=== PATIENT | female | born 1985 | race Caucasian/White ===

== ENCOUNTER 2020-07-25 16:52 | Emergency (ER) | payer BC, OTHER ==
--- NOTE | 2020-07-25 18:41 | EDPHYS ---
Physician Documentation [facility] Name: Eugenia Julio Age: 34 yrs Sex: Female : 1985 Arrival Date: 07/25/2020 Time: 16:55 Bed 6 Private MD: ED Physician Juan Kidd HPI: 07/25 18:23 This 34 yrs old Female presents to ER via Ambulatory with complaints of kb Shortness Of Breath. 18:23 The patient has shortness of breath at rest. Onset: The symptoms/episode began/occurred kb 1 week(s) ago. Duration: The symptoms are intermittent. The patient's shortness of breath is aggravated by nothing, is alleviated by nothing. Associated signs and symptoms: The patient has no apparent associated signs or symptoms. Severity of symptoms: At their worst the symptoms were mild in the emergency department the symptoms are unchanged. The patient has not experienced similar symptoms in the past. The patient has not recently seen a physician. Pt reports she has felt like she needs to take a deep breath every so often to catch her breath. States it happens more at night and has been going on for a week. Denies cough, congestion, fever, chills. . Historical: - Allergies: 17:18 No Known Allergies; iw - PSHx: 17:18 None; iw - Immunization history:: Flu vaccine is not up to date. - Social history:: Smoking status: Patient denies any tobacco usage or history of. ROS: 18:20 Constitutional: Negative for fever, chills, and weight loss, Cardiovascular: Negative kb for chest pain, palpitations, and edema, Abdomen/GI: Negative for abdominal pain, nausea, vomiting, diarrhea, and constipation, Back: Negative for injury and pain, MS/Extremity: Negative for injury and deformity, Skin: Negative for injury, rash, and discoloration, Neuro: Negative for headache, weakness, numbness, tingling, and seizure. 18:20 Respiratory: Positive for shortness of breath, Negative for cough, dyspnea on exertion, hemoptysis, orthopnea, pleurisy, sputum production, wheezing. Exam: 18:20 Constitutional: This is a well developed, well nourished patient who is awake, alert, kb and in no acute distress. Head/Face: Normocephalic, atraumatic. Neck: Trachea midline, no thyromegaly or masses palpated, and no cervical lymphadenopathy. Supple, full range of motion without nuchal rigidity, or vertebral point tenderness. No Meningismus. Chest/axilla: Normal chest wall appearance and motion. Nontender with no deformity. No lesions are appreciated. Cardiovascular: Regular rate and rhythm with a normal S1 and S2. No gallops, murmurs, or rubs. Normal PMI, no JVD. No pulse deficits. Respiratory: Lungs have equal breath sounds bilaterally, clear to auscultation and percussion. No rales, rhonchi or wheezes noted. No increased work of breathing, no retractions or nasal flaring. Abdomen/GI: Soft, non-tender, with normal bowel sounds. No distension or tympany. No guarding or rebound. No evidence of tenderness throughout. Skin: Warm, dry with normal turgor. Normal color with no rashes, no lesions, and no evidence of cellulitis. MS/ Extremity: Pulses equal, no cyanosis. Neurovascular intact. Full, normal range of motion. Neuro: Awake and alert, GCS 15, oriented to person, place, time, and situation. Cranial nerves II-XII grossly intact. Motor strength 5/5 in all extremities. Sensory grossly intact. Cerebellar exam normal. Normal gait. 18:40 ECG was reviewed by the Attending Physician. Vital Signs: 17:16 BP 126 / 75; Pulse 67; Resp 17; Temp 98.0; Pulse Ox 100% ; Weight 77.11 kg; Height 5 iw ft. 8 in. (172.72 cm); Pain 0/10; 17:16 Body Mass Index 25.85 (77.11 kg, 172.72 cm) iw MDM: 17:50 Patient medically screened. kb 18:20 Data reviewed: vital signs, nurses notes. Data interpreted: Pulse oximetry: on room air kb is 100 %. Interpretation: normal. 18:40 Counseling: I had a detailed discussion with the patient and/or guardian regarding: the kb historical points, exam findings, and any diagnostic results supporting the discharge/admit diagnosis, radiology results, the need for outpatient follow up, a family practitioner, to return to the emergency department if symptoms worsen or persist or if there are any questions or concerns that arise at home. 07/25 17:35 Order name: Chest Single View XRAY kb 07/25 18:29 Order name: EKG; Complete Time: 18:30 kb 10 18:29 Order name: EKG - Nurse/Tech; Complete Time: 18:37 kb EC:40 Rate is 64 beats/min. Rhythm is regular. QRS [place] is Normal. MO interval is normal at kb 132 msec. QRS interval is normal at 86 msec. QT interval is normal at 416 msec. Administered Medications: No medications were administered Disposition: 07/26 09:15 Co-signature as Attending Physician, Juan Kidd MD I agree with the assessment and kdr plan of care. Disposition: 07/25/20 18:41 Discharged to Home. Impression: Dyspnea, unspecified. - Condition is Stable. - Discharge Instructions: Shortness of Breath, [id number]. - Medication Reconciliation Form, Thank You Letter, Antibiotic Education, Prescription Opioid Use form. - Follow up: Emergency Department; When: As needed; Reason: Worsening of condition. Follow up: Private Physician; When: 2 - 3 days; Reason: Recheck today's complaints, Continuance of care, Re-evaluation by your physician. Signatures: Dispatcher [employer] EDID Poonam Brown, MUSEUM REGISTRAR-C MUSEUM REGISTRAR-Ckb Juan Kidd MD MD [facility] Shaneka Miranda RN RN Lianet Moore RN RN ss Corrections: (The following items were deleted from the chart) 07/25 18:58 18:41 07/25/2020 18:41 Discharged to Home. Impression: Dyspnea, unspecified. Condition ss is Stable. Forms are Medication Reconciliation Form, Thank You Letter, Antibiotic Education, Prescription Opioid Use. Follow up: Emergency Department; When: As needed; Reason: Worsening of condition. Follow up: Private Physician; When: 2 - 3 days; Reason: Recheck today's complaints, Continuance of care, Re-evaluation by your physician. kb
--- NOTE | 2020-07-25 18:41 | ER ---
Nurse's Notes [facility] Name: Eugenia Julio Age: 34 yrs Sex: Female : 1985 Arrival Date: 07/25/2020 Time: 16:55 Bed 6 Private MD: Diagnosis: Dyspnea, unspecified Presentation: 07/25 17:16 Chief complaint: Patient states: SOB noticed off/on for 1 week. Worse at night. No iw fever, no cough. No N/V/D. Coronavirus screen: Client denies travel out of the [place] in the last 14 days. At this time, the client does not indicate any symptoms associated with coronavirus-19. Ebola Screen: Patient denies travel to an Ebola-affected area in the 21 days before illness onset. Initial Sepsis Screen: Does the patient meet any 2 criteria? No. Patient's initial sepsis screen is negative. Risk Assessment: Do you want to hurt yourself or someone else? Patient reports no desire to harm self or others. Onset of symptoms was July 19, 2020. 17:16 Method Of Arrival: Ambulatory iw 17:16 Acuity: ZOË 3 iw Historical: - Allergies: 17:18 No Known Allergies; iw - PSHx: 17:18 None; iw - Immunization history:: Flu vaccine is not up to date. - Social history:: Smoking status: Patient denies any tobacco usage or history of. Screenin:10 Abuse screen: Denies threats or abuse. Denies injuries from another. Nutritional ss screening: No deficits noted. Tuberculosis screening: Never had TB. Fall Risk None identified. Assessment: 18:10 General: Appears in no apparent distress. comfortable, Behavior is calm, cooperative, ss Denies fever, feeling ill, fatigue, chills. Pain: Denies pain. Neuro: Level of Consciousness is awake, alert, obeys commands, Oriented to person, place, time, situation, Swimmer are equal bilaterally Speech is normal, Facial symmetry appears normal. Cardiovascular: Pulses are palpable in right radial artery and left radial artery Rhythm is regular. Respiratory: Reports "it just feels like I'm not getting a good enough breath. It's worse when I lay down like at night and today I noticed it was more during the day." Airway is patent Respiratory effort is even, unlabored, Respiratory pattern is regular, symmetrical, Breath sounds are clear bilaterally. Denies cough, pain with respiration, pain with cough, pain with movement. GI: Patient currently denies diarrhea, nausea, vomiting. : No signs and/or symptoms were reported regarding the genitourinary system. EENT: Nares are clear. Derm: Skin is intact, is healthy with good turgor, Skin is dry, Skin is pink, warm \\T\\ dry. normal. Musculoskeletal: No deficits noted. No signs and/or symptoms reported regarding the musculoskeletal system. Vital Signs: 17:16 BP 126 / 75; Pulse 67; Resp 17; Temp 98.0; Pulse Ox 100% ; Weight 77.11 kg; Height 5 iw ft. 8 in. (172.72 cm); Pain 0/10; 17:16 Body Mass Index 25.85 (77.11 kg, 172.72 cm) iw ED Course: 16:55 Patient arrived in ED. ds1 17:17 Triage completed. iw 17:18 Arm band placed on. iw 17:35 Poonam Brown FNP-C is [facility]. kb 17:35 Juan Kidd MD is Attending Physician. kb 17:56 Lianet Moore, GÓMEZ is Primary Nurse. ss 18:10 Patient has correct armband on for positive identification. Bed in low position. Call ss light in reach. 18:11 Chest Single View XRAY In Process Unspecified. EDMS 18:57 No provider procedures requiring assistance completed. Patient did not have IV access ss during this emergency room visit. Administered Medications: No medications were administered Outcome: 18:41 Discharge ordered by MD. kb 18:57 Discharged to home ambulatory. ss 18:57 Condition: good 18:57 Discharge instructions given to patient, Instructed on discharge instructions, follow up and referral plans. Demonstrated understanding of instructions, follow-up care. 18:58 Patient left the ED. ss Signatures: Dispatcher [employer] EDMD Poonam Brown FNP-C FNP-Ckb [place], Demi ds1 Shaneka Miranda RN RN iw Lianet Moore RN RN ss
[2020-07-25 19:23] VITALS: BP 126/75; TEMP 98; O2SAT 100
--- NOTE | 2020-07-26 11:39 | EKG ---
Test Date: 2020-07-25 Test Time: 18:41:05 Solar Water Heater Installer: OWEN MEASUREMENT RESULTS: Intervals: Rate: 64 HI: 132 QRSD: 86 QT: 416 QTc: 429 Cullen: P: 62 HI: 132 QRS: 50 T: 48 INTERPRETIVE STATEMENTS: Normal sinus rhythm Normal ECG No previous ECG available for comparison Electronically Signed On 07-26-20 11:37:28 CDT by Tawanda Miranda
--- NOTE | 2020-07-26 12:03 | RAD REPORT ---
EXAM DESCRIPTION: RAD - Chest Single View - 07/25/2020 10:23 pm CLINICAL HISTORY: DYSPNEA Chest pain. COMPARISON: No comparisons FINDINGS: Portable technique limits examination quality. The lungs are grossly clear. The heart is normal in size. No displaced fractures. IMPRESSION: No acute intrathoracic process suspected.
== END 2020-07-25 18:58 | disposition home or self-care (01) ==
LOC: ER 16:52
DX: R06.00 Dyspnea, unspecified (principal)
CPT/HCPCS: 71045; 93005; 99283

== ENCOUNTER 2022-02-12 20:20 | Emergency (ER) | payer BC ==
[2022-02-12 20:57] LABS: Urine Blood Negative (Negative); Urine Glucose Negative (Negative); Urine Protein Negative (Negative); Urine Specific Gravity 1.025 (1.005-1.030)
--- NOTE | 2022-02-12 21:30 | RAD REPORT ---
EXAM DESCRIPTION: CT - Stone Protocol - 02/12/2022 9:07 pm CLINICAL HISTORY: Abdominal pain. Flank pain COMPARISON: None. TECHNIQUE: Computed axial tomography of the abdomen pelvis was obtained without oral or IV contrast. Lack of IV and oral contrast limits evaluation of solid organs, bowel, and vessels. Coronal reformat tammy images were obtained and reviewed. All CT scans are performed using dose optimization technique as appropriate and may include automated exposure control or mA/KV adjustment according to patient size. FINDINGS: A renal calculus is not seen. An ureteral calculus is not noted. A bladder calculus is not present. 17 millimeter low-density area right kidney. 11 millimeter low to intermediate density area within the medial segment left lobe of the liver. Spleen, pancreas and adrenals appear grossly normal There is no evidence of diverticulitis. The appendix appears normal No adnexal mass IMPRESSION: Negative for a genitourinary calculus 17 millimeter low-density area within the right kidney probably a cyst. 11 millimeter low to intermediate density area within liver probably benign. It is recommended that patient have a followup ultrasound of liver and right kidney in 3 months for r e-evaluation
[2022-02-12] MEDS ORDERED: KETOROLAC 30 MG/ML INJ ONE (21:57)
--- NOTE | 2022-02-12 22:02 | ER ---
Nurse's Notes [facility] Name: Eugenia Julio Age: 36 yrs Sex: Female : 1985 Arrival Date: 02/12/2022 Time: 20:24 Bed 11 Private MD: Diagnosis: UTI/ Urinary tract infection, site not specified;Flank Pain Presentation: 02/12 20:26 Chief complaint: Patient states: "I have been having low back pain on my left side for ab2 a few days. It radiates into my groin." Pt denies any urinary symptoms. Pt denies trauma or known injury. Coronavirus screen: Vaccine status: Patient reports receiving the 2nd dose of the covid vaccine. Client denies travel out of the [place] in the last 14 days. At this time, the client does not indicate any symptoms associated with coronavirus-19. Ebola Screen: Patient negative for fever greater than or equal to 101.5 degrees Fahrenheit, and additional compatible Ebola Virus Disease symptoms Patient denies exposure to infectious person. Patient denies travel to an Ebola-affected area in the 21 days before illness onset. No symptoms or risks identified at this time. Initial Sepsis Screen: Does the patient meet any 2 criteria? No. Patient's initial sepsis screen is negative. Does the patient have a suspected source of infection? No. Patient's initial sepsis screen is negative. Risk Assessment: Do you want to hurt yourself or someone else? Patient reports no desire to harm self or others. Onset of symptoms is unknown. 20:26 Method Of Arrival: Ambulatory ab2 20:26 Acuity: ZOË 4 ab2 Triage Assessment: 20:28 General: Appears in no apparent distress. uncomfortable, Behavior is calm, cooperative, ab2 appropriate for age. Pain: Complains of pain in back Pain radiates to pelvis. Neuro: Level of Consciousness is awake, alert, obeys commands, Oriented to person, place, time, situation, Appropriate for age Certified Medication Technician are equal bilaterally Moves all extremities. Gait is steady, Speech is normal, Facial symmetry appears normal. Respiratory: Airway is patent. Musculoskeletal: Range of motion: intact in all extremities, Reports pain in back. Historical: - Allergies: 20:28 No Known Allergies; ab2 - PMHx: 20:28 None; ab2 - PSHx: 20:28 None; ab2 - Immunization history:: Adult Immunizations up to date. - Social history:: Smoking status: Patient denies any tobacco usage or history of. Screenin:32 Abuse screen: Denies threats or abuse. Denies injuries from another. Nutritional tw5 screening: No deficits noted. Tuberculosis screening: No symptoms or risk factors identified. Fall Risk None identified. Assessment: 20:32 General: Appears in no apparent distress. comfortable, Behavior is calm, cooperative, tw5 appropriate for age. Pain: Complains of pain in back Pain does not radiate. Pain currently is 7 out of 10 on a pain scale. Quality of pain is described as throbbing. Neuro: Level of Consciousness is awake, alert, obeys commands, Oriented to person, place, time, situation. Cardiovascular: Capillary refill < 3 seconds Patient's skin is warm and dry. Respiratory: Airway is patent Respiratory effort is even, unlabored. GI: Abdomen is flat, non-distended. : No signs and/or symptoms were reported regarding the genitourinary system. EENT: No signs and/or symptoms were reported regarding the EENT system. Derm: No signs and/or symptoms reported regarding the dermatologic system. Musculoskeletal: No signs and/or symptoms reported regarding the musculoskeletal system. Vital Signs: 20:26 BP 122 / 72; Pulse 72; Resp 17; Temp 97.5; Pulse Ox 99% ; Weight 99.79 kg; Height 5 ft. ab2 9 in. (175.26 cm); Pain 7/10; 20:32 BP 129 / 77; Pulse 76; Resp 18; Pulse Ox 100% on R/A; Pain 7/10; tw5 22:10 BP 92 / 66; Pulse 71; Resp 18 S; Pulse Ox 99% on R/A; as6 20:26 Body Mass Index 32.49 (99.79 kg, 175.26 cm) ab2 ED Course: 20:24 Patient arrived in ED. bp1 20:24 Abdelrahman Abarca PA is PHCP. jmm 20:24 Marc Pop MD is Attending Physician. jmm 20:28 Triage completed. ab2 20:28 Arm band placed on right wrist. ab2 20:30 Janet Patricia is Primary Nurse. tw5 20:32 Patient has correct armband on for positive identification. Placed in gown. Bed in low tw5 position. Call light in reach. Side rails up X2. clinical research monitor on. Pulse ox on. NIBP on. Door closed. Noise minimized. 20:32 No provider procedures requiring assistance completed. tw5 21:09 CT Stone Protocol In Process Unspecified. EDMS 22:11 Patient did not have IV access during this emergency room visit. as6 Administered Medications: 21:56 Drug: Ketorolac 30 mg Route: IM; Site: right vastus lateralis; ab2 22:03 Follow up: Response: No adverse reaction as6 Outcome: 22:02 Discharge ordered by . rohini 22:11 Discharged to home ambulatory. as6 22:11 Condition: stable 22:11 Discharge instructions given to patient, Instructed on discharge instructions, follow up and referral plans. medication usage, Demonstrated understanding of instructions, follow-up care, medications, Prescriptions given X 3. 22:11 Patient left the ED. as6 Signatures: Dispatcher [employer] EDMS Abdelrahman Abarca PA PA jmm Paniauga, Brittany bp1 Wood, Tiffany tw5 Frank Fuentes, GÓMEZ RN as6 Syed Galvez ab2
--- NOTE | 2022-02-12 22:03 | EDPHYS ---
Physician Documentation [facility] Name: Eugenia Julio Age: 36 yrs Sex: Female : 1985 Arrival Date: 02/12/2022 Time: 20:24 Bed 11 Private MD: ED Physician Marc Pop HPI: 02/12 20:21 This 36 yrs old Female presents to ER via Ambulatory with complaints of Back Pain. jmm 20:29 This 36 yrs old Female presents to ER via Ambulatory with complaints of Back Pain. jmm 20:29 The symptoms are located in the low back. Onset: The symptoms/episode began/occurred jmm gradually. 20:29 The pain radiates to the pelvis. jmm 20:29 Associated signs and symptoms: Pertinent negatives: nausea, vomiting. This is a 36 year jmm old female with no chronic medical conditions that presents to the ED with complaints of left flank pain beginning approx 3 days ago. Denies vomiting, nausea. States the pain does occasionally radiate into her left suprapubic region. Denies history of kidney stones. Denies fever or dysuria. Historical: - Allergies: 20:28 No Known Allergies; ab2 - PMHx: 20:28 None; ab2 - PSHx: 20:28 None; ab2 - Immunization history:: Adult Immunizations up to date. - Social history:: Smoking status: Patient denies any tobacco usage or history of. ROS: 20:29 Constitutional: Negative for fever, chills, and weight loss, Cardiovascular: Negative jmm for chest pain, palpitations, and edema, Respiratory: Negative for shortness of breath, cough, wheezing, and pleuritic chest pain. 20:29 Back: Positive for flank pain. 20:29 All other systems are negative. Exam: 20:29 Constitutional: This is a well developed, well nourished patient who is awake, alert, jmm and in no acute distress. Head/Face: atraumatic. Eyes: EOMI, no conjunctival erythema appreciated ENT: Moist Mucus Membranes Neck: Trachea midline, Supple Chest/axilla: Normal chest wall appearance and motion. Cardiovascular: Regular rate and rhythm. No edema appreciated Respiratory: Normal respirations, no respiratory distress appreciated Abdomen/GI: Non distended, soft 20:29 Back: CVA tenderness, that is mild, is noted on the left. 20:29 Musculoskeletal/extremity: ROM: intact in all extremities. 20:29 Skin: Appearance: Color: normal in color. 20:29 Neuro: Orientation: is normal, Mentation: is normal, Memory: is normal. 20:29 Psych: Behavior/mood is pleasant, cooperative. Vital Signs: 20:26 BP 122 / 72; Pulse 72; Resp 17; Temp 97.5; Pulse Ox 99% ; Weight 99.79 kg; Height 5 ft. ab2 9 in. (175.26 cm); Pain 7/10; 20:32 BP 129 / 77; Pulse 76; Resp 18; Pulse Ox 100% on R/A; Pain 7/10; tw5 22:10 BP 92 / 66; Pulse 71; Resp 18 S; Pulse Ox 99% on R/A; as6 20:26 Body Mass Index 32.49 (99.79 kg, 175.26 cm) ab2 MDM: 20:29 Patient medically screened. [facility] 22:00 Data reviewed: vital signs, nurses notes. Counseling: I had a detailed discussion with [facility] the patient and/or guardian regarding: the historical points, exam findings, and any diagnostic results supporting the discharge/admit diagnosis, the need for outpatient follow up, to return to the emergency department if symptoms worsen or persist or if there are any questions or concerns that arise at home. ED course: Patient is alert and non toxic in appearance in the ED. No signs of sepsis. Will treat with oral abx. I did discuss CT findings with the patient. Will follow up with pcp for reevaluation. Patient otherwise given strict return precautions. patient understood and agrees with the plan of care. . 02/12 20:57 Order name: Urine --Ancillary (enter results) ds4 02/12 20:57 Order name: Urine Dipstick-Ancillary; Complete Time: 21:09 [facility] 02/12 20:40 Order name: Urine Dipstick-Ancillary (obtain specimen); Complete Time: 20:56 [facility] 02/12 20:40 Order name: Urine Test (obtain specimen); Complete Time: 20:56 [facility] 02/12 20:40 Order name: CT Stone Protocol; Complete Time: 21:39 [facility] Administered Medications: 21:56 Drug: Ketorolac 30 mg Route: IM; Site: right vastus lateralis; ab2 22:03 Follow up: Response: No adverse reaction as6 Disposition: 02/13 01:13 Co-signature as Attending Physician, aMrc Pop MD. rn Disposition Summary: 02/12/22 22:02 Discharge Ordered Location: Home jmm Condition: Stable jmm Diagnosis - UTI/ Urinary tract infection, site not specified jmm - Flank Pain m Followup: jmm - With: Private Physician - When: 2 - 3 days - Reason: Recheck today's complaints, Continuance of care, Re-evaluation by your physician Discharge Instructions: - Discharge Summary Sheet jmm - Flank Pain, Adult jmm - Urinary Tract Infection, Adult jmm Forms: - Medication Reconciliation Form [facility] - Thank You Letter [facility] - Antibiotic Education [facility] - Prescription Opioid Use [facility] Prescriptions: - Diclofenac Sodium 75 mg Oral Tablet Sustained Release - take 1 tablet by ORAL route 2 times per day; 30 tablet; Refills: 0, Product [facility] Selection Permitted - orphenadrine citrate 100 mg Oral Tablet Sustained Release - take 1 tablet by ORAL route 2 times per day As needed; 20 tablet; Refills: 0, [facility] Product Selection Permitted - Cephalexin 500 mg Oral Capsule - take 1 capsule by ORAL route every 8 hours for 10 days; 30 capsule; Refills: 0, [facility] Product Selection Permitted Signatures: Dispatcher [employer] EDAbdelrahman Moy PA PA [facility] Marc Pop MD MD rn Bleininger, Alexis ab2 Slawson, Ashby RN as6 Corrections: (The following items were deleted from the chart) 02/12 21:58 20:29 This 36 yrs old Female presents to ER via Ambulatory with complaints of Back jmm Pain. jmm
[2022-02-12 22:15] LABS: Urine Specific Gravity/Preg 1.025 (1.005-1.030)
[2022-02-12 22:17] VITALS: TEMP 97.5
[2022-02-12 22:19] VITALS: BP 92/66; O2SAT 99
== END 2022-02-12 22:11 | disposition home or self-care (01) ==
LOC: ER 20:20
DX: N39.0 Urinary tract infection, site not specified (principal); R10.9 Unspecified abdominal pain
CPT/HCPCS: 74176; 76377; 81003; 81025; 96372; 99284